=== PATIENT | male | born 1955 | race Caucasian/White ===

== ENCOUNTER 2024-01-25 14:46 | Outpatient (CLI) | payer MEDICARE, OTHER | END 2024-01-25 14:47 | disposition home or self-care (01) | LOC: BICULT 14:46 | PROVIDERS: ATTEND Urology | DX: R35.1 Nocturia (principal); E11.9 Type 2 diabetes mellitus without complications; Z87.442 Personal history of urinary calculi; Z87.39 Personal history of other diseases of the musculoskeletal system and connective tissue | CPT/HCPCS: 76770 ==